=== PATIENT | female | born 1980 | race Caucasian/White ===

== ENCOUNTER 2016-10-15 16:30 | Observation (INO) | payer BC ==
--- NOTE | 2016-10-15 19:20 | GHP ---
[f rep st] HISTORY AND PHYSICAL DATE OF ADMISSION: 10/15/2016 OBSERVATION HISTORY AND PHYSICAL PRESENTATION DIAGNOSIS: Intrauterine at 39-2/7 weeks' gestation in prodromal labor. DISCHARGE DIAGNOSIS: Intrauterine at 39-2/7 weeks' gestation in prodromal labor. HISTORY OF PRESENT ILLNESS: The patient is a 36-year-old 3, para 1-0-1-1, with a last menst rual period of 01/14/2016 and an EDC of 10/20/2016, which was confirmed by an 8-week size ultrasound . The patient has had good care at [facility] since gestation of 8 weeks. She had an evaluation in the office today, and her cervix was found to be 3 cm, 80%, and the patie nt had her membranes swept. After her appointment, she began having irregular contractions which we re increasing in intensity. She has a lot of pelvic pain and pressure, and increased contractions w ith walking. They seem to resolve when she is resting. She has no vaginal bleeding, no leakage of fluid, and has had good movements. The patient was assessed in Labor and Delivery. She had n ormal vital signs. heart tones were 130s, reactive, moderate variability, and category 1. Sh e was sidney irregularly. Repeat cervical exam was 4, 80%, -2, and intact. PLAN: The patient was given options of discharge home with labor precautions versus augmentation of labor. We will carefully weighed the risks and benefits, and the patient decided to discharge home to watch for increasing labor symptoms and call when these occur. /[id number]/MODL
== END 2016-10-15 19:15 | disposition home or self-care (01) ==
LOC: FLD 16:30
PROVIDERS: ADMIT Obstetrics & Gynecology; ATTEND Obstetrics & Gynecology
DX: O47.03 False labor before 37 completed weeks of gestation, third trimester (principal); Z3A.39 39 weeks gestation of pregnancy
CPT/HCPCS: 59025; G0378

== ENCOUNTER 2016-10-19 17:20 | Inpatient (IN) | payer BC ==
--- NOTE | 2016-10-19 16:23 | GHP ---
[f rep st] HISTORY AND PHYSICAL DATE OF ADMISSION: 10/19/2016 ADMITTING DIAGNOSES: 1. Intrauterine at 39 and 6/7 weeks. 2. Prodromal labor. HISTORY OF PRESENT ILLNESS: Patient is a 36-year-old, 3, para 1-0-1-1 at 39 and 6/7 weeks with estimated due date 10/20/2016 by last menstrual period 01/14/2016, and consistent with a first-trimester ultrasound done at 7 weeks. The patient presents to labor and delivery with complaints of painful contractions as well as unable to sleep in prodromal labor. She did have her membranes stripped last week as well as again today and found to be 4 cm dilated. The patient denies any leakage of fluid or vaginal bleeding. Patient states there is good movement. GBS culture is negative. The patient does have good care at [facility], and presented in her 1st trimester at 7 weeks. The patient does have a history of hypothyroidism and is stable on medications. The patient does have a history with her 1st of mild preeclampsia and is currently taking a baby aspirin and has normal blood pressures during this . All genetic testing is negative. She did receive a Tdap during this . Patient did develop anemia of , PAST OBSTETRIC HISTORY: In 2013, the patient had a missed AB, that required a D and C. In 2014, she had a full-term vaginal delivery at 37 and 1 weeks, to a viable female weighing 6 pounds 2 ounces. She was induced secondary to mild preeclampsia. 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 Cycles are regular. Last menstrual period 01/14/2016. The patient does have a history of abnormal Pap smears and had a colposcopy but no treatment. Patient does have history of in vitro fertilization with 1 and had this done at [place] secondary to male factor. Patient has a history of positive HPV but no other exposure to any sexually transmitted diseases. PAST MEDICAL HISTORY: Asthma as a child. Hypothyroidism. PAST SURGICAL HISTORY: D and C. [place] teeth extraction. MEDICATIONS: Synthroid, vitamin, DHA, and baby aspirin. ALLERGIES: No known drug allergies. SOCIAL HISTORY: Patient is , lives with and their daughter. She is a [id number] mom. Denies alcohol, tobacco, or illicit drug use. LABS: Blood type O positive, antibody negative. RPR nonreactive. Rubella immune. Hepatitis B surface antigen negative. HIV negative. Trio screen was negative 2013. TSH, T4 1.28 and 1.03. 24-hour urine baseline 399 mg. Urine culture negative. Pap test normal. GC, chlamydia cultures negative. AFP negative. Verifi negative. H and H 3rd trimester 12.7, 37.1. Hematocrit at 34 weeks 32. 1-hour Glucola normal at 69 and GBS culture is negative. REVIEW OF SYSTEMS: A 10-point review of systems negative except for the pertinent positives noted above. PHYSICAL EXAMINATION: VITAL SIGNS: On admission, vital signs are stable. Patient is afebrile, well-nourished, well-developed female, alert and oriented x3, in no apparent distress. CARDIOVASCULAR: Regular rate and rhythm without murmur. PULMONARY: Lungs are clear to auscultation with normal breath sounds. ABDOMEN: Gravid, soft, nontender, nondistended. EXTREMITIES: Normal to inspection without calf tenderness or edema. PELVIC: On exam, she is 4cm dilated, 50% effaced and -2 station, intact. ASSESSMENT: The patient is a 36-year-old, 3, para 1-0-1-1, at 39 and 6 weeks who presents in prodromal labor for morphine rest. PLAN: 1. Admit to labor and delivery for observation. 2. Nonstress test. 3. Regular diet. 4. Morphine sulfate 2 mg IV and 8 mg IM with Phenergan 25 mg. 5. Will monitor for signs of active labor. /[id number]/MODL MTDD
[2016-10-19] MEDS ORDERED: LIDOCAINE 1% 30 ML SDV SC PRN (17:33)
[2016-10-19] MEDS ORDERED: TERBUTALINE SULFATE 1 MG/ML VIAL IV PRN (17:33)
[2016-10-19] MEDS ORDERED: OLIVE OIL 118 ML BTL MISC PRN (17:33)
[2016-10-19] MEDS ORDERED: EPSOM SALT 454 GM TP PRN (17:33)
[2016-10-19] MEDS ORDERED: OXYTOCIN/RINGERS LACTATE 1,000 ML IV PRN (17:33)
[2016-10-19] MEDS ORDERED: LR 1,000 ML IV PRN (17:33)
[2016-10-19 18:00] LABS: % IMMATURE GRANULYOCYTES 0.4 % (0.0-1.1); ABSOLUTE IMMATURE GRANULOCYTES 0.04 10^3/uL (0.00-0.10); ADD DIFF? NO; ADD MORPH? NO; ADD SCAN? NO; ATYPICAL LYMPHOCYTE FLAG 20 (0-99); FRAGMENT RBC FLAG 0 (0-99); HEMATOCRIT 39.4 % (38.0-47.0); HEMOGLOBIN 13.9 g/dL (12.6-16.3); LEFT SHIFT FLG 0 (0-99); LIPEMIA HEMOLYSIS FLAG 90 (0-99); MEAN CELL HEMOGLOBIN 30.8 pg (27.9-34.1); MEAN CELL HEMOGLOBIN CONCENTR. 35.3 g/dL (32.4-36.7); MEAN CELL VOLUME 87.4 fL (81.5-99.8); MEAN PLATELET VOLUME 11.9 fL (8.7-11.7); PLATELET CLUMPS FLAG 80 (0-99); PLATELET COUNT 140 10^3/uL (150-400); RED BLOOD CELL COUNT 4.51 10^6/uL (4.18-5.33); RED CELL DISTRIBUTION WIDTH 13.2 % (11.5-15.2)
[2016-10-19] MEDS ORDERED: PROMETHAZINE HCL 25 MG/ML INJ IM ONE (18:00)
[2016-10-20] MEDS ORDERED: LR 500 ML IV PRN (09:00)
[2016-10-20] MEDS ORDERED: OXYTOCIN/RINGERS LACTATE 500 ML IV SCH (09:00)
--- NOTE | 2016-10-20 09:07 | OBPROG ---
OBG Progress Note Assessment/Plan: Assessment: 36 y/o @ 40 weeks with prolonged latent labor Plan: She rested with Mso4 sleep overnight. She has tried multiple attempts of membrane sweeps, accupuncture, walking etc for several days. She is now 40 weeks and would like to start IOL. She has good monitoring and favorable Moreno's score and is aware of the risks/benefits of IOL. We will start pitocin and after we have achieved a good labor pattern, will AROM and she will desire an epidural. 10/20/16 09:04 Subjective: Pt rested overnight and feels much better. She has min crampy contractions but they are not intense. She still feels good FM. She is ready to IOL this am. Objective: 10/19/16 17:45 Patient ABO/Rh O POSITIVE 10/19/16 17:45 - SVE Dilation (cm): 4 Effacement (%): 80 Current Contraction Pattern: Irregular FHR (bpm): 140 FHR Pattern Variability: Moderate FHR Category: 1 Membranes: Intact ICD10 Worksheet Patient Problems: Problems Problem Status Onset Preeclampsia Acute (spontaneous vaginal delivery) Acute
[2016-10-20] MEDS ORDERED: OLIVE OIL 118 ML BTL ONE (09:30)
[2016-10-20] MEDS ORDERED: MISOPROSTOL 200 MCG TAB ONE (09:31)
--- NOTE | 2016-10-20 12:01 | OBPROG ---
OBG Progress Note Assessment/Plan: Assessment: 36 y/o @ 40 weeks with prolonged latent labor Plan: AROM now for clear fluid and pt may want an epidural soon. Continue IOL with pitocin. 10/20/16 09:04 10/20/16 12:01 Subjective: Pt is feeling some cramping with contractions. Objective: 10/19/16 17:45 Patient ABO/Rh O POSITIVE 10/19/16 17:45 - SVE Dilation (cm): 5 Effacement (%): 90 Station: 0 Current Contraction Pattern: Regular (Q 4) FHR (bpm): 140 FHR Pattern Variability: Moderate FHR Category: 1 Membranes: AROM Amniotic Fluid Color: Clear ICD10 Worksheet Patient Problems: Problems Problem Status Onset Preeclampsia Acute (spontaneous vaginal delivery) Acute
[2016-10-20] MEDS ORDERED: fentaNYL 2MCG/ML/BUP 0.1% RTU 100 ML BAG EP ONE (13:09)
[2016-10-20] MEDS ORDERED: fentaNYL 100 MCG/2 ML INJ ONE (13:10)
[2016-10-20] MEDS ORDERED: BUPIVACAINE 0.25% 30 ML SDV ONE (13:10)
[2016-10-20] MEDS ORDERED: PHENYLEPHRINE HCL 100 MCG/ML SYR ONE (13:10)
[2016-10-20] MEDS ORDERED: CALCIUM CARBONATE 500 MG CHEWABLE TAB PO PRN (13:56)
[2016-10-20] MEDS ORDERED: ONDANSETRON 4 MG/2 ML VIAL IVP PRN (15:23)
[2016-10-20] MEDS ORDERED: PHENYLEPHRINE HCL 100 MCG/ML SYR IVP PRN (15:23)
--- NOTE | 2016-10-20 15:26 | POSTANESTH ---
Post Anesthetic Evaluation Cardiovascular Status: Normal, Stable Respiratory Status: Normal, Stable, Similar to Pre-op Cond. Level of Consciousness/Mental Status: Can Participate in Eval, Alert and Oriented (Tolerated CSE well, stable, comfortable.) Pain Control: Adequate, Prn Tx Ordered Nausea/Vomiting Control: Adequate, Prn Tx Ordered Complications Possibly Related to Anesthesia: None Noted
[2016-10-20 15:29] VITALS: RESP 16
--- NOTE | 2016-10-20 15:29 | PREANESOB ---
Obstetric Pre-Anesthesia Info - General Info Proposed Procedure: Labor and delivery. : 3 Para: 1 WBD: 40 - Info Status: Full Term Monitors: External FHR Baseline (bpm): 135 FHR Pattern: Reassuring - Labor Status Cervical Dilation per last OB SVE: 5 Station per last OB SVE: 0 Amniotic Fluid Color: Clear Pitocin: Planned Indications for Labor Analgesia: Pain Control Anesthesia ROS: Prior labor epidural. Allergies/Adverse Reactions: Allergy/AdvReac Type Severity Reaction Status Date / Time No Known Allergies Allergy Verified 10/19/16 17:33 Home Medications: Medication Instructions Recorded Aspirin [Aspirin 81mg (OTC)] 1 tab PO DAILY 04/11/15 Iron/Docusate Sodium 1 tab PO BID 04/11/15 [Jo Ann-Sequels 50 mg] Levothyroxine [Synthroid 25 mcg 12.5 mcg PO DAILY 04/11/15 (RX)] Vit27&Calcium/Iron/FA 1 tab PO DAILY 04/11/15 [] Docusate Sodium [Colace 100 MG (*)] 100 mg PO BID PRN #0 cap 04/18/15 Ibuprofen [Motrin (*)] 600 mg PO Q6 PRN #0 tab 04/18/15 Visit Medications: Generic Name Dose Route Start Last Admin Trade Name Freq PRN Reason Stop Dose Admin Calcium Carbonate 500 mg 10/20/16 13:56 Tums PO 04/18/17 13:55 TID PRN Indigestion Diphenhydramine HCl 25 mg 10/20/16 13:56 Benadryl Injection IVP 04/18/17 13:55 Q4HRS PRN Itching Lactated Ringer's 1,000 mls @ 0 mls/hr 10/19/16 17:33 Lr IV 04/17/17 17:32 PRN PRN SEE PROTOCOL CONDITIONS Protocol Per Protocol Oxytocin/Lactated Ringer's 1,000 mls @ 150 mls/hr 10/19/16 17:33 Pitocin 20 Units/Lr (Premix) IV PRN PRN Post- bleeding Lactated Ringer's 500 mls @ 500 mls/hr 10/20/16 09:00 Lr IV PRN PRN Maternal Hypotension Oxytocin/Lactated Ringer's 500 mls @ 0 mls/hr 10/20/16 09:00 Pitocin 30 Units/Lr (Premix) IV 04/18/17 08:59 [facility] Protocol Per Protocol Fentanyl/Bupivacaine HCl 100 mls @ 0 mls/hr 10/20/16 15:30 Fentanyl/Bupivacaine/Ns 2 Mcg/Ml 0.1% (Premix EP 10/30/16 15:29 [facility] Protocol As Directed Lactated Ringer's 500 mls @ 0 mls/hr 10/20/16 15:30 Lr IV 04/18/17 15:29 [facility] As Directed Ibuprofen 600 mg 10/19/16 17:33 Motrin PO 04/17/17 17:32 Q6HRS PRN post , inflammation Lidocaine HCl 30 ml 10/19/16 17:33 Lidocaine Hcl 1% SC 04/17/17 17:32 ONCE PRN Episiotomy Magnesium Sulfate 454 gm 10/19/16 17:33 Epsom Salt TP 04/17/17 17:32 PRN PRN perineal discomfort [place] Oil 118 ml 10/19/16 17:33 Sweet Oil MISC 04/17/17 17:32 ONCE PRN preneal massage Ondansetron HCl 4 mg 10/20/16 15:23 Zofran IVP 04/18/17 15:22 Q4HRS PRN Nausea/Vomiting, Can't Take PO Phenylephrine HCl 100 mcg 10/20/16 15:23 Castro-Synephrine IVP 04/18/17 15:22 .Q2M PRN Hypotension Terbutaline Sulfate 0.25 mg 10/19/16 17:33 Brethine IV 04/17/17 17:32 ONCE PRN Tachysystole Discontinued Medications Generic Name Dose Route Start Last Admin Trade Name Laurentq PRN Reason Stop Dose Admin Bupivacaine HCl Confirm 10/20/16 13:10 Sensorcaine 0.25% Sdv Administered 10/20/16 13:11 Dose 30 ml .ROUTE .STK-MED ONE Fentanyl Confirm 10/20/16 13:10 Sublimaze Administered 10/20/16 13:11 Dose 100 mcg .ROUTE .STK-MED ONE Fentanyl/Bupivacaine HCl Confirm 10/20/16 13:09 Fentanyl/Bupivacaine/Ns 2 Mcg/Ml 0.1% (Premix Administered 10/20/16 13:10 Dose 100 ml EP .STK-MED ONE Misoprostol Confirm 10/20/16 09:31 Cytotec Administered 10/20/16 09:32 Dose 1,000 mcg .ROUTE .STK-MED ONE Morphine Sulfate 2 mg 10/19/16 18:00 10/19/16 19:24 Morphine IVP 10/19/16 18:01 2 mg ONCE ONE Administration Morphine Sulfate 8 mg 10/19/16 18:00 10/20/16 02:52 Morphine IM 10/19/16 18:01 Not Given ONCE ONE Morphine Sulfate Confirm 10/19/16 17:59 Morphine Administered 10/19/16 18:00 Dose 10 mg .ROUTE .STK-MED ONE Morphine Sulfate 8 mg 10/19/16 19:15 10/19/16 19:15 Morphine IM 10/19/16 19:16 8 mg ONCE ONE Administration [place] Oil Confirm 10/20/16 09:30 Sweet Oil Administered 10/20/16 09:31 Dose 118 ml .ROUTE .STK-MED ONE Phenylephrine HCl Confirm 10/20/16 13:10 Castro-Synephrine Administered 10/20/16 13:11 Dose 1,000 mcg .ROUTE .STK-MED ONE Promethazine HCl 25 mg 10/19/16 18:00 10/19/16 19:19 Phenergan IM 10/19/16 18:01 25 mg ONCE ONE Administration - Anesthesia History Response to Local Anesthetics: Normal Anesthesia & Operative History: No Prior Problems - Social History Substance Use/Abuse: Denies - Focused Exam Blood Pressure: 121/66 Heart Rate: 80 Respiratory Rate: 16 Height/Weight (Nursing): Height 170.18 cm Weight 72.575 kg Physical Exam: Within normal limits. ASA Status: II Labs: 10/19/16 17:45 Patient ABO/Rh O POSITIVE 10/19/16 17:45 - Plan Anesthetic Plan: CSE Consent Signed and on Chart: Yes Patient/Guardian Understands and Agrees to Plan: Yes
[2016-10-20] MEDS ORDERED: fentaNYL 2MCG/ML/BUP 0.1% RTU 100 ML EP SCH (15:30)
[2016-10-20] MEDS ORDERED: LR 500 ML IV SCH (15:30)
[2016-10-20] MEDS ORDERED: SIMETHICONE 80 MG TAB CHEW PO PRN (16:06)
[2016-10-20] MEDS ORDERED: ACETAMINOPHEN 325 MG TAB PO PRN (16:06)
[2016-10-20] MEDS ORDERED: HYDROCODONE/APAP 5/325 TAB PO PRN (16:06)
[2016-10-20] MEDS ORDERED: HYDROCORTISONE 0.5% CREAM TP PRN (16:06)
[2016-10-20] MEDS: IBUPROFEN 600 MG TAB PO PRN ×2 (16:09→21:59)
--- NOTE | 2016-10-20 16:09 | OBPROC ---
- Labor and Delivery Onset of Contractions Date: 10/20/16 Onset of Contractions Time: 11:55 Onset of Contractions Type: Induced Rupture of Membranes Date: 10/20/16 Rupture of Membranes Time: 11:55 Rupture of Membranes Type: Artificial Amniotic Fluid Color: Clear Dilation Complete Time: 15:05 Delivery Type: Spontaneous Placenta Delivery Date: 10/20/16 Placenta Delivery Time: 15:49 Episiotomy/Laceration: Other (Specify) (intact perineum) EBL: 300 Complications: Nuchal Cord (loose x 1) - Medications Labor Augmentation/Induction Meds Used: Pitocin Labor Augmentation/Induction Indication: Elective (prolonged latent labor) Anesthesia: Epidural - [place] Info A Delivery Date: 10/20/16 Delivery Time: 15:45 Sex of Infant: Female Score (1 Min): 8 Score (5 Min): 9
[2016-10-21] MEDS: IBUPROFEN 600 MG TAB PO PRN ×4 (04:26→22:32)
[2016-10-21] MEDS: DOCUSATE SODIUM 100 MG CAP PO PRN ×2 (10:33→22:32)
--- NOTE | 2016-10-21 12:10 | SOAPPROG ---
SOAP Progress Note Assessment/Plan: Assessment: PPD 1 s/p Plan: routine care 10/21/16 12:07 Subjective: Pt doing well. Mod cramps with BF. urinating fine. Bld has decreased quite a bit. had BM but still feels full. Desires D/C tomorrow Objective: Vital Signs Temp Pulse Resp BP Pulse Ox 36.3 C 75 16 98/60 L 93 10/20/16 19:38 10/20/16 19:38 10/20/16 19:38 10/20/16 19:38 10/20/16 19:38 Laboratory Results 10/19/16 17:45 10/20/16 10/21/16 10/22/16 05:59 05:59 05:59 Output Total 400 Balance -400 Physical Exam - Physical Exam General Appearance: WD/WN Abdomen: non-tender, soft, other (FF at umb -1) Pelvic Exam: vaginal bleeding (normal lochia) Extremities: non-tender, pedal edema (mild) Neuro/Psych: normal mood/affect ICD10 Worksheet Patient Problems: Problems Problem Status Onset Preeclampsia Acute (spontaneous vaginal delivery) Acute
[2016-10-21 21:06] VITALS: O2SAT 95
[2016-10-22] MEDS: IBUPROFEN 600 MG TAB PO PRN (06:39)
[2016-10-22] MEDS: DOCUSATE SODIUM 100 MG CAP PO PRN (09:16)
--- NOTE | 2016-10-22 09:32 | SOAPPROG ---
SOAP Progress Note Assessment/Plan: Assessment: ppd# 2 s/p breast feeding Plan: routine post care and discharge instructions 10/22/16 09:31 Subjective: patient is doing well. normal lochia. breast feeding is going well. denies headache and changes in vision. ready to go home. mood stable. Objective: Vital Signs Temp Pulse Resp BP Pulse Ox 36.2 C 71 16 113/74 95 10/21/16 19:45 10/21/16 19:45 10/21/16 19:45 10/21/16 19:45 10/21/16 19:45 Laboratory Results 10/19/16 17:45 10/21/16 10/22/16 10/23/16 05:59 05:59 05:59 Output Total 400 Balance -400 Physical Exam - Physical Exam General Appearance: WD/WN, alert, no apparent distress Neck: non-tender, full range of motion Respiratory: chest non-tender, lungs clear, normal breath sounds Cardiac/Chest: normal peripheral pulses, regular rate, rhythm Abdomen: normal bowel sounds, non-tender, soft, other (fundus firm and non tender) Skin: normal color, warm/dry Extremities: normal range of motion, non-tender, normal inspection, normal capillary refill Neuro/Psych: no motor/sensory deficits, alert, normal mood/affect, oriented x 3 ICD10 Worksheet Patient Problems: Problems Problem Status Onset Preeclampsia Acute (spontaneous vaginal delivery) Acute
[2016-10-22 11:26] VITALS: BP 115/78; PULSE 91; TEMP 97
== END 2016-10-22 11:00 | disposition home or self-care (01) | DRG 775 ==
LOC: OBSVTOIN 17:20 → FLD 17:20 → FOB 10-20 18:00
PROVIDERS: ADMIT Obstetrics & Gynecology; ATTEND Obstetrics & Gynecology
PROC: 10907ZC Drainage of Amniotic Fluid, Therapeutic from Products of Conception, Via Natural or Artificial Opening (ICD-10-PCS; principal; 2016-10-20)
PROC: 10E0XZZ Delivery of Products of Conception, External Approach (ICD-10-PCS; principal; 2016-10-20)
PROC: 3E033VJ Introduction of Other Hormone into Peripheral Vein, Percutaneous Approach (ICD-10-PCS; principal; 2016-10-20)
DX: O63.9 Long labor, unspecified (principal); O48.0 Post-term pregnancy; O69.81X0 Labor and delivery complicated by cord around neck, without compression, not applicable or unspecified; O99.284 Endocrine, nutritional and metabolic diseases complicating childbirth; E03.9 Hypothyroidism, unspecified; Z3A.40 40 weeks gestation of pregnancy; Z37.0 Single live birth
CPT/HCPCS: J1200; J2370; J2550; J2590; J3010